=== PATIENT | male | born 1995 | race African-American/Black ===

== ENCOUNTER 2017-02-13 09:43 | Outpatient (CLI) | payer BC ==
[2017-02-13 11:57] LABS: #Basophils 0.2 thou/uL (0.0-0.2); #Eosinphils 0.3 thou/uL (0.0-0.7); #Lymphocytes 2.8 thou/uL (1.20-3.40); #Monocytes 0.8 thou/uL (0.11-0.59); %Basophils 2.4 % (0.0-1.0); %Eosinophils 2.9 % (0.0-10.0); %Lymphocytes 28.1 % (21.0-51.0); %Monocytes 7.8 % (0.0-10.0); %Neutrophils 58.9 % (42.0-75.0); Hemoglobin 16.1 g/dL (14.0-18.0); Mean Corpuscular HGB CONC 32.8 g/dL (32.0-36.0); Mean Corpuscular Hemoglobin 28.3 pg (27.0-31.0); Mean Corpuscular Volume 86.3 fl (80.0-94.0); Platelet Count 251 thou/uL (130-400); RBC Distribution Width 13.5 % (11.5-14.5); Red Blood Cell (RBC) Count 5.71 mill/uL (4.70-6.10); White Blood Cell (WBC) Count 10.1 thou/uL (4.8-10.8)
[2017-02-13 12:02] LABS: Hemoglobin A1c 5.3 % (4.0-6.0)
[2017-02-13 12:03] LABS: ALT (SGPT) 41 U/L (8-55); AST (SGOT) 19 U/L (5-34); Albumin 4.1 g/dL (3.5-5.0); Alkaline Phosphatase 92 U/L (40-150); Anion Gap 12 mmol/L (10-20); BUN (Urea Nitrogen) 8 mg/dL (8.9-20.6); Bilirubin, Total 0.7 mg/dL (0.2-1.2); Calc. Creatinine Clearance 0 mL/min (70-130); Calcium 9.4 mg/dL (7.8-10.44); Carbon Dioxide 27 mmol/L (22-29); Cardiac Risk 3.9 (Less than 4.5); Chloride 105 mmol/L (98-107); Cholesterol 139 mg/dl (< 200 Desired); Estimated GFR-MDRD Greater than 90; Glucose 91 mg/dL (70-105); HDL Cholesterol 36 mg/dL (>60 Neg Risk); LDL Cholesterol, Calculated 89 mg/dL; Potassium 3.7 mmol/L (3.5-5.1); Protein, Total 7.1 g/dL (6.0-8.3); Sodium 140 mmol/L (136-145); Triglycerides 71 mg/dL (Less than 150)
[2017-02-13 12:19] LABS: Thyroid Stimulating Hormone 1.4305 uIU/mL (0.35-4.94); Vitamin D, 25 Hydroxy 12.1 ng/ml (> 30.0)
== END 2017-02-13 09:44 | disposition home or self-care (01) ==
LOC: MADLABBHPM 09:43
PROVIDERS: ATTEND Family Medicine
DX: Z00.00 Encounter for general adult medical examination without abnormal findings (principal)
CPT/HCPCS: 36415; 80053; 80061; 82306; 83036; 84443; 85025

== ENCOUNTER 2017-03-17 16:00 | Emergency (ER) | payer BC ==
[2017-03-17] MEDS ORDERED: AMOXicillin 250 MG CAP ONE (17:38)
== END 2017-03-17 17:55 | disposition home or self-care (01) ==
LOC: MADERS 16:00
DX: L30.9 Dermatitis, unspecified (principal); F17.290 Nicotine dependence, other tobacco product, uncomplicated
CPT/HCPCS: 96372; J1040

== ENCOUNTER 2017-04-22 20:04 | Emergency (ER) | payer BC ==
[2017-04-22] MEDS ORDERED: Lidocaine 1% w/Epinephrine 1:100K 20 ML VIAL ONE (20:16)
[2017-04-22] MEDS ORDERED: Triple Antibiotic Oint 1 GM Packet ONE (21:09)
[2017-04-22] MEDS ORDERED: Cephalexin 500 MG CAP ONE (21:17)
[2017-04-22] MEDS ORDERED: Adacel (T-DAP) 0.5 ML VIAL ONE (21:17)
[2017-04-22] MEDS ORDERED: Sulfameth/Trimethoprim DS 800-160mg TAB ONE (21:17)
== END 2017-04-22 21:59 | disposition home or self-care (01) ==
LOC: MADERS 20:04
DX: L02.411 Cutaneous abscess of right axilla (principal); F17.210 Nicotine dependence, cigarettes, uncomplicated
CPT/HCPCS: 10060; 87070; 87205; 90471; 90715; J2001

== ENCOUNTER 2017-08-20 23:59 | Emergency (ER) | payer BC ==
[2017-08-21] MEDS ORDERED: Lidocaine 2% w/Epinephrine 1:200K 20 ML VIAL ONE (00:18)
[2017-08-21] MEDS ORDERED: Clindamycin 150 MG CAP ONE (00:18)
== END 2017-08-21 01:05 | disposition home or self-care (01) ==
LOC: MADERS 23:59
DX: L02.511 Cutaneous abscess of right hand (principal); F17.210 Nicotine dependence, cigarettes, uncomplicated
CPT/HCPCS: 99282

== ENCOUNTER 2017-10-27 12:15 | Emergency (ER) | payer BC ==
[2017-10-27] MEDS ORDERED: Acetaminophen/Codeine 30-300mg Tablet ONE (13:35)
[2017-10-27] MEDS ORDERED: Oxymetazoline HCl 0.05% ( 15 ML ) ONE (13:36)
[2017-10-27] MEDS ORDERED: AMOXicillin 250 MG CAP ONE (13:36)
== END 2017-10-27 13:40 | disposition home or self-care (01) ==
LOC: MADERS 12:15
DX: J01.90 Acute sinusitis, unspecified (principal); F17.210 Nicotine dependence, cigarettes, uncomplicated
CPT/HCPCS: 99283

== ENCOUNTER 2017-11-19 13:29 | Emergency (ER) | payer BC | END 2017-11-19 14:25 | disposition home or self-care (01) | LOC: MADERS 13:29 | DX: M54.6 Pain in thoracic spine (principal); F17.290 Nicotine dependence, other tobacco product, uncomplicated | CPT/HCPCS: 99283 ==

== ENCOUNTER 2018-12-29 16:29 | Emergency (ER) | payer BC ==
[2018-12-29] MEDS ORDERED: Ibuprofen 800 MG TAB ONE (16:58)
== END 2018-12-29 17:10 | disposition home or self-care (01) ==
LOC: MADERS 16:29
DX: R07.89 Other chest pain (principal); F17.210 Nicotine dependence, cigarettes, uncomplicated
CPT/HCPCS: 99283

== ENCOUNTER 2019-04-01 15:40 | Emergency (ER) | payer BC | END 2019-04-01 17:07 | disposition home or self-care (01) | LOC: MADERS 15:40 | DX: H60.92 Unspecified otitis externa, left ear (principal) | CPT/HCPCS: 99282 ==

== ENCOUNTER 2019-08-08 14:30 | Emergency (ER) | payer BC ==
[2019-08-08] MEDS ORDERED: Lidocaine Viscous Sol 2% 15 ml UD Cup ONE (15:31)
[2019-08-08] MEDS ORDERED: Mag-Al Plus 1200 MG/1200 MG/120 MG/30 ML UDCUP ONE (15:31)
== END 2019-08-08 16:30 | disposition home or self-care (01) ==
LOC: MADERS 14:30
DX: K21.9 Gastro-esophageal reflux disease without esophagitis (principal)
CPT/HCPCS: 93005

== ENCOUNTER 2020-08-15 09:18 | Emergency (ER) | payer BC, SELFPAY ==
--- NOTE | 2020-08-15 10:18 | RAD ---
EXAM: Portable chest PROVIDED CLINICAL HISTORY: Chest pain COMPARISON: 06/10/2009 FINDINGS: Cardiac and mediastinal silhouette is within normal limits. No focal consolidation, pleural fluid or pneumothorax evident. IMPRESSION: No evidence for an acute cardiopulmonary process.
[2020-08-15] MEDS ORDERED: Mag-Al Plus 1200 MG/1200 MG/120 MG/30 ML UDCUP ONE (10:24)
[2020-08-15] MEDS ORDERED: Lidocaine Viscous Sol 2% 15 ml UD Cup ONE (10:24)
[2020-08-15 10:34] LABS: #Basophils 0.2 thou/uL (0.0-0.2); #Eosinphils 0.3 thou/uL (0.0-0.7); #Lymphocytes 3.1 thou/uL (1.20-3.40); #Monocytes 0.7 thou/uL (0.11-0.59); #Neutrophils 4.2 thou/uL (1.40-6.50); %Basophils 2.6 % (0.0-1.0); %Eosinophils 3.6 % (0.0-10.0); %Lymphocytes 36.7 % (21.0-51.0); %Monocytes 7.8 % (0.0-10.0); %Neutrophils 49.3 % (42.0-75.0); Hemoglobin 14.8 g/dL (14.0-18.0); Mean Corpuscular HGB CONC 31.4 g/dL (32.0-36.0); Mean Corpuscular Hemoglobin 27.1 pg (27.0-31.0); Mean Corpuscular Volume 86.2 fL (78.0-98.0); Mean Platelet Volume 9.5 fL (7.4-10.4); Platelet Count 296 thou/uL (130-400); RBC Distribution Width 12.5 % (11.5-14.5); Red Blood Cell (RBC) Count 5.45 mill/uL (4.70-6.10); White Blood Cell (WBC) Count 8.5 thou/uL (4.8-10.8)
[2020-08-15 10:46] LABS: ALT (SGPT) 79 U/L (8-55); AST (SGOT) 33 U/L (5-34); Albumin 4.1 g/dL (3.5-5.0); Alkaline Phosphatase 82 U/L (40-110); Anion Gap 14 mmol/L (10-20); BUN (Urea Nitrogen) 8 mg/dL (8.9-20.6); Bilirubin, Total 0.4 mg/dL (0.2-1.2); CK (CPK) 241 U/L (30-200); Calc. Creatinine Clearance 0 mL/min (70-130); Calcium 9.6 mg/dL (7.8-10.44); Carbon Dioxide 25 mmol/L (22-29); Chloride 105 mmol/L (98-107); Estimated GFR-MDRD Greater than 90; Globulin 3.2 g/dL (2.4-3.5); Glucose 110 mg/dL (70-105); Potassium 4.1 mmol/L (3.5-5.1); Protein, Total 7.3 g/dL (6.0-8.3); Sodium 140 mmol/L (136-145)
[2020-08-15 11:10] LABS: CKMB 1.2 ng/mL (0-6.6)
== END 2020-08-15 11:05 | disposition home or self-care (01) ==
LOC: MADERS 09:18
DX: K21.9 Gastro-esophageal reflux disease without esophagitis (principal)
CPT/HCPCS: 71045; 80053; 82550; 82553; 84484; 85025; 93005

== ENCOUNTER 2022-09-15 21:32 | Emergency (ER) | payer SELFPAY ==
[~2022-09-15 21:32] MED LIST: Iopamidol 370 76% 100 ML VIAL ONE
[2022-09-15] MEDS ORDERED: Orphenadrine Citrate 60 MG/2 ML VIAL ONE (22:17)
[2022-09-15] MEDS ORDERED: Sodium Chloride 0.9% 1,000 ML ONE (22:17)
[2022-09-15] MEDS ORDERED: Ondansetron PF 4 MG/2 ML Vial ONE (22:17)
[2022-09-15 22:26] LABS: Bilirubin Negative (Negative); Blood, Urine Trace (Negative); Clarity Clear (Clear); Glucose, Urine (Dipstick) Negative (Negative); Ketone, Urine Negative (Negative); Leukocyte Trace (Negative); Nitrite Negative (Negative); Protein, Urine (Dipstick) Negative (Neg-Trace); Specific Gravity, Urine 1.025 (1.005-1.030); Urobilinogen 0.2 mg/dL (Less than 2)
[2022-09-15 22:35] LABS: Mean Corpuscular HGB CONC 32.5 g/dL (32.0-36.0); Mean Corpuscular Hemoglobin 27.9 pg (27.0-31.0); Mean Corpuscular Volume 85.8 fl (78.0-98.0); Mean Platelet Volume 9.7 fL (7.4-10.4); Platelet Count 339 10x3/uL (130-400); RBC Distribution Width 12.9 % (11.5-14.5); Red Blood Cell (RBC) Count 5.37 mill/uL (4.70-6.10); White Blood Cell (WBC) Count 13.4 10x3/uL (4.8-10.8)
[2022-09-15 22:36] LABS: Band 3 % (5-11); Eosinophils 2 % (0-10); Lymphocytes 18 % (21-51); MDiff Complete? YES; Monocytes 9 % (0-10); Neutrophil 68 % (42-75); RBC Morphology Normal
[2022-09-15 22:38] LABS: Bacteria/HPF None Seen HPF (None Seen); RBC/HPF 0-3 HPF (0-3); Squamous Epithelial 0-3 HPF (0-3); WBC/HPF 21-50 HPF (0-3)
[2022-09-15 22:41] LABS: ALT (SGPT) 37 U/L (8-55); AST (SGOT) 18 U/L (5-34); Albumin 4.1 g/dL (3.5-5.0); Alkaline Phosphatase 95 U/L (40-110); Anion Gap 14 mmol/L (10-20); BUN (Urea Nitrogen) 8 mg/dL (8.9-20.6); Bilirubin, Total 0.5 mg/dL (0.2-1.2); Calc. Creatinine Clearance 0 mL/min (70-130); Calcium 9.5 mg/dL (7.8-10.44); Carbon Dioxide 24 mmol/L (22-29); Chloride 106 mmol/L (98-107); Estimated GFR 88; Globulin 3.4 g/dL (2.4-3.5); Glucose 98 mg/dL (70-105); Lipase 13 U/L (8-78); Potassium 3.9 mmol/L (3.5-5.1); Protein, Total 7.5 g/dL (6.0-8.3); Sodium 140 mmol/L (136-145)
== END 2022-09-15 23:20 | disposition home or self-care (01) ==
LOC: MADERS 21:32
DX: M54.9 Dorsalgia, unspecified (principal); F17.290 Nicotine dependence, other tobacco product, uncomplicated
CPT/HCPCS: 70450; 71260; 72125; 74177; 80053; 81003; 81015; 83690; 85025; 96374; 96375; J2360; J2405; J7050; Q9967

== ENCOUNTER 2023-05-07 17:44 | Emergency (ER) | payer BC, SELFPAY ==
[2023-05-07] MEDS ORDERED: Lidocaine 1% w/Epinephrine 1:100K 20 ML VIAL ONE (19:34)
[2023-05-07] MEDS ORDERED: Boostrix 0.5 ML (Tdap) VIAL (>/=7 yrs of age) ONE ×2 (20:17→20:21)
== END 2023-05-07 20:35 | disposition home or self-care (01) ==
LOC: MADERS 17:44
DX: L02.213 Cutaneous abscess of chest wall (principal); F17.290 Nicotine dependence, other tobacco product, uncomplicated
CPT/HCPCS: 10060; 87070; 87205; 90471; 90715

== ENCOUNTER 2023-05-10 09:03 | Emergency (ER) | payer BC ==
[2023-05-10] MEDS ORDERED: Lidocaine 1% PF 5 ML VIAL ONE ×2 (09:31→10:06)
[2023-05-10] MEDS ORDERED: cefTRIAXone (ROCEPHIN) 1 GM VIAL ONE (10:06)
== END 2023-05-10 10:16 | disposition home or self-care (01) ==
LOC: MADERS 09:03
DX: Z48.817 Encounter for surgical aftercare following surgery on the skin and subcutaneous tissue (principal); L02.213 Cutaneous abscess of chest wall; F17.210 Nicotine dependence, cigarettes, uncomplicated
CPT/HCPCS: 96372; 99282; J0696

== ENCOUNTER 2024-02-17 19:54 | Emergency (ER) | payer OTHER ==
[2024-02-17] MEDS ORDERED: Ketorolac Tromethamine 30 MG (1 mL) VIAL ONE (20:36)
== END 2024-02-17 21:01 | disposition home or self-care (01) ==
LOC: MADERS 19:54
DX: M54.42 Lumbago with sciatica, left side (principal); Z87.891 Personal history of nicotine dependence
CPT/HCPCS: 96372; 99283; J1885

== ENCOUNTER 2025-08-16 13:07 | Emergency (ER) | payer OTHER | END 2025-08-16 13:26 | disposition home or self-care (01) | LOC: MADERS 13:07 | DX: S81.011D Laceration without foreign body, right knee, subsequent encounter (principal); F17.290 Nicotine dependence, other tobacco product, uncomplicated; X58.XXXD Exposure to other specified factors, subsequent encounter ==

== ENCOUNTER 2025-08-21 10:28 | Emergency (ER) | payer OTHER ==
[2025-08-21] MEDS ORDERED: Amoxicillin/Potassium Clav 875 MG TAB ONE (11:02)
== END 2025-08-21 11:15 | disposition home or self-care (01) ==
LOC: MADERS 10:28
DX: L02.214 Cutaneous abscess of groin (principal); F17.290 Nicotine dependence, other tobacco product, uncomplicated
CPT/HCPCS: 99282